=== PATIENT | female | born 1970 | race Caucasian/White ===

== ENCOUNTER → 2017-05-30 | Outpatient (CLI) | payer BC ==
[~2017-05-30] MED LIST: ALLEGRA; ASPI325 PO; ASPI325EC PO; CETI5; CYCL10 PO; DILT300 PO; ESTEST.62T PO; FLEC100 PO; FLUCONAZOLE; Flecainide Ace150 MG PO; HYDACE5 PO; HYDCOR10 PO; HYDPAM25; LORA1SY; Lanoxin250 MCG PO; META800 PO; METO25ER PO; MOMENI; NAPR550 PO; NEBI5 PO; NYSTATIN; PARO20; PROACE100 PO; PROGESTERONE; RANI150; VITAMINS; VITAMINS/SUPPLEMENTS; XARELTO20 MG PO; ZOLP10 PO; Zofran4 MG PO; [UNRECOGNIZED DRUG - OTHER]; [UNRECOGNIZED DRUG - OTHER]; [UNRECOGNIZED DRUG - OTHER] TOP
== END ==
LOC: PLD 10:15 → LAB SHORT 10:15
DX: D22.62 Melanocytic nevi of left upper limb, including shoulder (principal); L81.4 Other melanin hyperpigmentation
CPT/HCPCS: 88305

== ENCOUNTER → 2017-06-21 | Outpatient (CLI) | payer BC | END | disposition home or self-care (01) | LOC: LAB SHORT 13:46 → PLD 13:46 | DX: D48.5 Neoplasm of uncertain behavior of skin (principal) | CPT/HCPCS: 88305 ==

== ENCOUNTER 2017-07-11 11:19 | Inpatient (IN) | payer BC ==
[~2017-07-11] VITALS: Ht 165.1 cm; Wt 114.0 kg
[2017-07-11 12:22] LABS: BASOPHILS ABSOLUTE AUTO 0.05 K/mm3 (0.00-0.23); BASOPHILS PERCENT AUTO 0 % (0-2); EOSINOPHILS ABSOLUTE AUTO 0.18 K/mm3 (0.00-0.68); EOSINOPHILS PERCENT AUTO 2 % (0-6); IMMATURE GRAN ABSOLUTE AUTO 0.04 K/mm3 (0.00-0.10); IMMATURE GRAN PERCENT AUTO 0 % (0-1); LYMPHOCYTES ABSOLUTE AUTO 2.12 K/mm3 (0.84-5.20); LYMPHOCYTES PERCENT AUTO 18 % (21-46); MONOCYTES PERCENT AUTO 5 % (4-13); Mean Corpuscular HGB 27.5 pg (26.0-34.0); Mean Corpuscular HGB Conc 32.6 g/dL (31.5-36.5); Mean Corpuscular Volume 85 fL (80-100); Mean Platelet Volume 10.3 fL (9.1-12.4); NEUTROPHILS ABSOLUTE AUTO 8.87 K/mm3 (1.96-9.15); NEUTROPHILS PERCENT AUTO 75 % (41-73); Platelet Count 383 K/mm3 (150-400); RDW Coefficient Variation 14.8 % (11.7-14.2); RDW Standard Deviation 45.5 fL (35.1-46.3); Red Blood Cell Count 5.09 M/mm3 (3.80-5.20); White Blood Cell Count 11.86 K/mm3 (4.00-11.30)
[2017-07-11 12:43] LABS: Alanine Aminotransfer (ALT/SGP 29 U/L (12-78); Albumin, Blood 3.5 g/dL (3.4-5.0); Albumin/Globulin Ratio 0.9 (0.8-1.8); Alk Phos 63 U/L (50-136); Anion Gap 8 mmol/L (6-16); Aspartate Aminotrans (AST/SGOT 19 U/L (12-37); Bilirubin, Total 0.4 mg/dL (0.1-1.0); Blood Urea Nitrogen 14 mg/dL (8-24); Bun/Creatinine Ratio 13.5 (12.0-20.0); CO2, Blood 28 mmol/L (21-32); Calcium, Blood 9.5 mg/dL (8.5-10.1); Chloride, Blood 106 mmol/L (98-108); Creatinine, Blood 1.04 mg/dL (0.40-1.00); Globulin, Blood 4.1 g/dL (2.2-4.0); Glomerular Filtration Rate >60 (60-); Glucose, Blood 105 mg/dL (70-99); Sodium, Blood 142 mmol/L (136-145); Total Protein, Blood 7.6 g/dL (6.4-8.2); Troponin I 0.031 ng/mL (0.000-0.040)
[2017-07-11] MEDS ORDERED: META800 PO (12:59)
[2017-07-11] MEDS ORDERED: LIDO5TO TD (13:00)
[2017-07-11] MEDS ORDERED: Flector1 EACH (13:00)
[2017-07-11] MEDS ORDERED: PRAM.5 PO (13:02)
[2017-07-11] MEDS ORDERED: HYDCOR10 PO (16:26)
[2017-07-11] MEDS ORDERED: PARO30 PO (16:27)
[2017-07-12 17:22] LABS: Source, Urine Clean Catch
[2017-07-12 17:31] LABS: Bilirubin, Urine Neg (Neg); Blood, Urine Neg (Neg); Glucose Qualitative, Urine Neg (Neg); Ketones, Urine Neg (Neg); Leukocyte Esterase, Urine Neg (Neg); Nitrite, Urine Neg (Neg); Protein, Urine Neg (Neg); Urobilinogen, Urine NORM (Normal)
[2017-07-12 17:41] LABS: Appearance, Urine Clear (Clear); Color, Urine Yellow (P-Yellow)
[2017-07-13 15:56] LABS: International Normalized Ratio 1.08; Prothrombin Time Results 11.3 Sec (9.7-11.5)
[2017-07-13 16:03] LABS: Anion Gap 7 mmol/L (6-16); Blood Urea Nitrogen 8 mg/dL (8-24); Bun/Creatinine Ratio 8.7 (12.0-20.0); CO2, Blood 28 mmol/L (21-32); Calcium, Blood 9.2 mg/dL (8.5-10.1); Chloride, Blood 103 mmol/L (98-108); Creatinine, Blood 0.92 mg/dL (0.40-1.00); Glomerular Filtration Rate >60 (60-); Glucose, Blood 123 mg/dL (70-99); Magnesium, Blood 1.6 mg/dL (1.6-2.4); Potassium, Blood 3.6 mmol/L (3.5-5.5); Sodium, Blood 138 mmol/L (136-145)
[2017-07-15] MEDS ORDERED: Transderm-Scop1 EACH TD (08:48)
[2017-07-15] MEDS ORDERED: XARELTO20 MG PO (08:49)
[2017-07-15] MEDS ORDERED: PROM25S PR (08:50)
[2017-07-15] MEDS ORDERED: METO50ER PO (08:50)
== END 2017-07-15 09:50 | disposition home or self-care (01) | DRG 309 ==
LOC: ER 11:19 → PCU 13:56
PROVIDERS: Emergency Medicine; Hospitalist; Internal Medicine Cardiovascular Disease
DX: I48.91 Unspecified atrial fibrillation (principal); E27.40 Unspecified adrenocortical insufficiency; Z68.41 Body mass index [BMI] 40.0-44.9, adult; E66.01 Morbid (severe) obesity due to excess calories
CPT/HCPCS: 36415; 80048; 80053; 81003; 83735; 84484; 85025; 85610; 92960; 93005; 93010; 96365; 96366; 96375; 99152; 99285; C1751; J1720; J2250; J2405; J2550; J3010; J7030

== ENCOUNTER 2019-03-05 12:34 | Observation (INO) | payer BC ==
[~2019-03-05] VITALS: Ht 162.6 cm; Wt 108.4 kg
[~2019-03-05 12:34] MED LIST changes: +ASCO500 PO; +B Complex #11 EACH PO; -CETI5; +CETI5 PO; +ELIQUIS5 MG PO; +Flector1 EACH; +Flector1 EACH TOP; -HYDPAM25; +HYDPAM25 PO; +LIDO5TO TD; +LIDO700A20 TOP; +METO50ER PO; +ONDA4 PO; +PARO30 PO; +PRAM.5 PO; +PROGESTERONE SUPP VAG; +PROM25S PR; +PROP60 PO; +THERA-D2000 UNIT PO; +THERA1 EACH PO; +Transderm-Scop1 EACH TOP; +Zantac150 MG PO
[2019-03-05 13:08] LABS: BASOPHILS ABSOLUTE AUTO 0.07 K/mm3 (0.00-0.23); BASOPHILS PERCENT AUTO 1 % (0-2); EOSINOPHILS PERCENT AUTO 4 % (0-6); Hematocrit 43.8 % (33.0-51.0); IMMATURE GRAN ABSOLUTE AUTO 0.04 K/mm3 (0.00-0.10); IMMATURE GRAN PERCENT AUTO 0 % (0-1); LYMPHOCYTES ABSOLUTE AUTO 2.46 K/mm3 (0.84-5.20); LYMPHOCYTES PERCENT AUTO 24 % (21-46); MONOCYTES PERCENT AUTO 7 % (4-13); Mean Corpuscular HGB 27.8 pg (26.0-34.0); Mean Corpuscular Volume 87 fL (80-100); Mean Platelet Volume 11.4 fL (9.1-12.4); NEUTROPHILS ABSOLUTE AUTO 6.67 K/mm3 (1.96-9.15); NEUTROPHILS PERCENT AUTO 64 % (41-73); Platelet Count 282 K/mm3 (150-400); RDW Coefficient Variation 13.9 % (11.7-14.2); RDW Standard Deviation 44.2 fL (35.1-46.3); Red Blood Cell Count 5.03 M/mm3 (3.80-5.20); White Blood Cell Count 10.34 K/mm3 (4.00-11.30)
[2019-03-05 13:38] LABS: Alanine Aminotransfer (ALT/SGP 30 U/L (12-78); Albumin, Blood 3.9 g/dL (3.4-5.0); Alk Phos 80 U/L (50-136); Anion Gap 7 mmol/L (6-16); Aspartate Aminotrans (AST/SGOT 22 U/L (12-37); Bilirubin, Total 0.6 mg/dL (0.1-1.0); Blood Urea Nitrogen 14 mg/dL (8-24); CO2, Blood 26 mmol/L (21-32); Calcium, Blood 9.3 mg/dL (8.5-10.1); Chloride, Blood 109 mmol/L (98-108); Creatinine, Blood 1.08 mg/dL (0.40-1.00); Globulin, Blood 3.8 g/dL (2.2-4.0); Glomerular Filtration Rate 57 (60-); Glucose, Blood 98 mg/dL (70-99); Potassium, Blood 4.1 mmol/L (3.5-5.5); Sodium, Blood 142 mmol/L (136-145); Total Protein, Blood 7.7 g/dL (6.4-8.2); Troponin I <0.015 ng/mL (0.000-0.040)
[2019-03-05] MEDS ORDERED: METAXALONE800 M1 PO (14:31)
[2019-03-05] MEDS ORDERED: PROP120ER PO (14:32)
[2019-03-05] MEDS ORDERED: XARELTO20 M1 PO (14:35)
[2019-03-05] MEDS ORDERED: Hydrocortisone5 MG PO (14:47)
[2019-03-05] MEDS ORDERED: Cortef5 MG PO ×2 (14:48→14:49)
--- NOTE | 2019-03-05 19:12 | NUR ---
SHIFT SUMMARY PT A&OX4, VSS, TELE NSR @ 60 BPM. IV DILTIAZEM INFUSING PER ORDERS INTO 20G RWRIST. DENIES PAIN. DENIES N&V, KIMMY PO, REGULAR DIET. INDEPENDENT TO BRP. VOIDING WELL. WILL REPORT TO ONCOMING NOC RN.
--- NOTE | 2019-03-05 19:15 | NUR ---
ASUME CARE: REPORT RECIEVED FROM OFF GOING RN FRANDY, MONITOR INTACT SHOWING AFIB HEART RATE 50-70'S. CARDIZEM GTT STOPPED AND HOSPITALLIST DR SOTO NOTIFIED REQUEST ASA 81 MG STATES "I TAKE IT AT THE SAME TIME I TAKE MY BLOOD THINNER . ORDERS NOTED MEDICATED WITH SAME. LUNGS CLEAR RESPIRATIONS REGULAR AND EASY ON ROOM AIR. SPO2 100% ABDOMEN SOFT WITH BOWEL SOUNDS FOUR QUADS. CONTINUE TO MONITOR AND REPORT CHANGE IN PATIENT CONDITION.
--- NOTE | 2019-03-05 20:15 | NUR ---
CARDIZEM GTT OFF SECONDARY TO HEART RATE 50'S-70'S DR SOTO NOTIFIED AND ORDERS NOTED.
--- NOTE | 2019-03-05 23:37 | NUR ---
ANSWERING SERVICE NOTIFIED OF CONSULT
[2019-03-06 03:43] LABS: BASOPHILS ABSOLUTE AUTO 0.06 K/mm3 (0.00-0.23); BASOPHILS PERCENT AUTO 1 % (0-2); EOSINOPHILS PERCENT AUTO 6 % (0-6); Hematocrit 41.8 % (33.0-51.0); Hemoglobin 13.2 g/dL (11.5-16.0); IMMATURE GRAN ABSOLUTE AUTO 0.03 K/mm3 (0.00-0.10); IMMATURE GRAN PERCENT AUTO 0 % (0-1); LYMPHOCYTES ABSOLUTE AUTO 3.12 K/mm3 (0.84-5.20); LYMPHOCYTES PERCENT AUTO 36 % (21-46); MONOCYTES ABSOLUTE AUTO 0.62 K/mm3 (0.16-1.47); MONOCYTES PERCENT AUTO 7 % (4-13); Mean Corpuscular HGB 27.7 pg (26.0-34.0); Mean Corpuscular HGB Conc 31.6 g/dL (31.5-36.5); Mean Corpuscular Volume 88 fL (80-100); Mean Platelet Volume 11.5 fL (9.1-12.4); NEUTROPHILS ABSOLUTE AUTO 4.47 K/mm3 (1.96-9.15); NEUTROPHILS PERCENT AUTO 51 % (41-73); Platelet Count 263 K/mm3 (150-400); Red Blood Cell Count 4.77 M/mm3 (3.80-5.20)
[2019-03-06 04:14] LABS: Anion Gap 9 mmol/L (6-16); Blood Urea Nitrogen 14 mg/dL (8-24); Bun/Creatinine Ratio 16.1 (12.0-20.0); CO2, Blood 20 mmol/L (21-32); Calcium, Blood 8.8 mg/dL (8.5-10.1); Chloride, Blood 112 mmol/L (98-108); Creatinine, Blood 0.87 mg/dL (0.40-1.00); Glomerular Filtration Rate >60 (60-); Glucose, Blood 96 mg/dL (70-99); Potassium, Blood 4.1 mmol/L (3.5-5.5); Sodium, Blood 141 mmol/L (136-145)
--- NOTE | 2019-03-06 06:42 | NUR ---
SHIFT SUMMARY: RESTS QUIETLY WHEN UNDISTURBED. MONITOR INTACT SHOWING A FIB. HEART RATE 50'S-80'S. LUNG SOUNDS CLEAR RESPIRATIONS REGULAR AND EASY ON ROOM AIR GAIT STEADY IN ROOM. SPO2 97-100% ABDOMEN SOFT WITH BOWEL SOUND S FOUR QUADS. VOIDS ROBERTO URINE. TRACE TO MIN EDEMA IN FEET CONTINUE TO MONITOR AND REPORT CHANGE IN PATIENT CONDITION
--- NOTE | 2019-03-06 14:15 | NUR ---
Echocardiogram completed.
--- NOTE | 2019-03-06 17:49 | NUR ---
DISCHARGE SUMMARY PT A&Ox4. CALM AND COOPERATIVE WITH CARE. PT RESTING IN BED DURING SHIFT. IND IN ROOM. ASSISTING WITH I&O. PT REPORTS CHRONIC PAIN TO LEFT KNEE AND ACUTE PAIN TO RIGHT SHOULDER; HEATING PAD AND x1 WITH TYLENOL WITH POSITVE RESULTS. PT DENIES SOB; CHEST PAIN; LIGHTHEADED AND DIZZINESS; AND NAUSEA. VSS. DR RIVERA AT BEDSIDE THIS AFTERNOON; ECHO COMPLETED. VSS. NO OTHER ACUTE CHANGES NOTED DURING SHIFT. PT EDUCATED ON DISCHARGE INSTRUCTIONS; THE NEED FOR FOLLOW UP APPOINTMENTS; AND NO CHANGES TO MEDICATIONS. PT LEFT ROOM ON FOOT AT 1736; PT STABLE UPON DISCHARGE.
== END 2019-03-06 17:41 | disposition home or self-care (01) ==
LOC: ER 12:34 → PCU 12:35 → ER 14:56 → PCU 18:20
PROVIDERS: Emergency Medicine; ADMIT Internal Medicine
DX: I48.91 Unspecified atrial fibrillation (principal); N17.9 Acute kidney failure, unspecified; E27.40 Unspecified adrenocortical insufficiency; E66.01 Morbid (severe) obesity due to excess calories; Z68.41 Body mass index [BMI] 40.0-44.9, adult; Z88.5 Allergy status to narcotic agent; Z88.6 Allergy status to analgesic agent; Z88.8 Allergy status to other drugs, medicaments and biological substances; Z79.891 Long term (current) use of opiate analgesic; Z79.899 Other long term (current) drug therapy; Z79.01 Long term (current) use of anticoagulants; Z79.51 Long term (current) use of inhaled steroids
CPT/HCPCS: 36415; 71046; 80048; 80053; 84484; 85025; 93005; 93010; 93308; 93321; 96365; 96366; 96376; 99285-25; G0378

== ENCOUNTER → 2019-05-01 | Outpatient (CLI) | payer BC ==
[~2019-05-01] MED LIST changes: +Cortef5 MG PO; +Hydrocortisone5 MG PO; +METAXALONE800 M1 PO; +PROP120ER PO; +XARELTO20 M1 PO
== END | disposition home or self-care (01) ==
LOC: LAB SHORT 13:23 → LAB 13:23
DX: R30.0 Dysuria (principal)
CPT/HCPCS: 87086

== ENCOUNTER → 2019-12-25 | Outpatient (CLI) | payer BC | LOC: LAB SHORT 11:37 → PLD 11:37 | DX: D22.5 Melanocytic nevi of trunk (principal); L81.4 Other melanin hyperpigmentation | CPT/HCPCS: 88305 ==

== ENCOUNTER → 2021-09-24 | Outpatient (CLI) | payer BC ==
[2021-09-24 18:19] LABS: Albumin, Blood 3.9 g/dL (3.4-5.0); Albumin/Globulin Ratio 1.1 (0.8-1.8); Bilirubin, Total 0.4 mg/dL (0.1-1.0); Bun/Creatinine Ratio 12.1 (12.0-20.0); Calcium, Blood 9.9 mg/dL (8.5-10.1); Creatinine, Blood 0.99 mg/dL (0.40-1.00); Globulin, Blood 3.6 g/dL (2.2-4.0); Potassium, Blood 5.1 mmol/L (3.5-5.5); Total Protein, Blood 7.5 g/dL (6.4-8.2)
== END | disposition home or self-care (01) ==
LOC: LAB 10:50 → LAB SHORT 10:50
PROVIDERS: Hospitalist
DX: R42 Dizziness and giddiness (principal)
CPT/HCPCS: 80053; 85651

== ENCOUNTER → 2022-07-13 | Outpatient (CLI) | payer BC ==
[2022-07-13 15:50] LABS: BASOPHILS ABSOLUTE AUTO 0.05 K/mm3 (0.00-0.23); BASOPHILS PERCENT AUTO 1 % (0-2); EOSINOPHILS ABSOLUTE AUTO 0.35 K/mm3 (0.00-0.68); EOSINOPHILS PERCENT AUTO 5 % (0-6); Hematocrit 39.4 % (33.0-51.0); Hemoglobin 13.1 g/dL (11.5-16.0); IMMATURE GRAN ABSOLUTE AUTO 0.02 K/mm3 (0.00-0.10); IMMATURE GRAN PERCENT AUTO 0 % (0-1); LYMPHOCYTES ABSOLUTE AUTO 1.61 K/mm3 (0.84-5.20); LYMPHOCYTES PERCENT AUTO 24 % (21-46); MONOCYTES PERCENT AUTO 7 % (4-13); Mean Corpuscular HGB 27.2 pg (26.0-34.0); Mean Corpuscular HGB Conc 33.2 g/dL (31.5-36.5); Mean Corpuscular Volume 82 fL (80-100); Mean Platelet Volume 11.3 fL (9.1-12.4); NEUTROPHILS ABSOLUTE AUTO 4.21 K/mm3 (1.96-9.15); NEUTROPHILS PERCENT AUTO 63 % (41-73); Platelet Count 355 K/mm3 (150-400); RDW Coefficient Variation 14.3 % (11.7-14.2); RDW Standard Deviation 42.8 fL (35.1-46.3); Red Blood Cell Count 4.81 M/mm3 (3.80-5.20); White Blood Cell Count 6.74 K/mm3 (4.00-11.30)
[2022-07-13 16:54] LABS: Alanine Aminotransfer (ALT/SGP 24 U/L (12-78); Albumin, Blood 3.5 g/dL (3.4-5.0); Albumin/Globulin Ratio 1.1 (0.8-1.8); Alk Phos 61 U/L (50-136); Anion Gap 7 mmol/L (6-16); Aspartate Aminotrans (AST/SGOT 21 U/L (12-37); Bilirubin, Total 0.3 mg/dL (0.1-1.0); Blood Urea Nitrogen 17 mg/dL (8-24); CHOL/HDL RATIO 4.8; CO2, Blood 27 mmol/L (21-32); Calcium, Blood 9.2 mg/dL (8.5-10.1); Chloride, Blood 109 mmol/L (98-108); Cholesterol 189 mg/dL (50-200); Globulin, Blood 3.1 g/dL (2.2-4.0); Glomerular Filtration Rate 68 (60-); Glucose, Blood 102 mg/dL (70-99); HDL Cholesterol 39 mg/dL (>39); LDL/HDL RATIO 3.5; Low Density Lipoprotein Chol 136 mg/dL (0-110); Potassium, Blood 4.1 mmol/L (3.5-5.5); Sodium, Blood 143 mmol/L (136-145); Total Protein, Blood 6.6 g/dL (6.4-8.2); Triglycerides 69 mg/dL (30-160); Very Low Density Lipoprot Chol 13 mg/dL (6-32)
== END | disposition home or self-care (01) ==
LOC: LAB 09:25 → LAB SHORT 09:25
PROVIDERS: Hospitalist
DX: I48.0 Paroxysmal atrial fibrillation (principal)
CPT/HCPCS: 80053; 80061; 83036; 85025